=== PATIENT | female | born 1985 | race Caucasian/White ===

== ENCOUNTER → 2016-10-31 | Outpatient (CLI) | payer OTHER ==
[2016-10-31 17:00] LABS: BASO % 0.6 % (0.0-1.0); EOS # 0.2 K/mm3 (0.0-0.50); EOS % 2.3 % (0.0-3.0); LARGE UNSTAINED CELL # 0.1 K/mm3 (0.0-0.4); LARGE UNSTAINED CELL % 1.5 % (0.0-4.0); LYMPH # 1.7 K/mm3 (1.5-4.5); LYMPH % 24.4 % (24.0-44.0); MEAN CORPUSCULAR HEMOGLOBIN 33.5 pg (27.0-33.0); MEAN CORPUSCULAR HGB CONC 35.2 g/dl (32.0-36.5); MEAN CORPUSCULAR VOLUME 95.1 fl (80.0-96.0); MONO # 0.3 K/mm3 (0.0-0.8); NEUTROPHILS # 4.3 K/mm3 (1.8-7.7); NEUTROPHILS % 67.2 % (36.0-66.0); PLATELET COUNT, AUTOMATED 207 k/mm3 (150-450); RED CELL DISTRIBUTION WIDTH 12.4 % (11.5-14.5); WHITE BLOOD COUNT 6.4 K/mm3 (4.0-10.0)
[2016-11-02 09:47] LABS: HBsAg Prenatal NEGATIVE (NEGATIVE)
== END ==
LOC: M LRY 10:45
PROVIDERS: ATTEND Obstetrics & Gynecology
DX: Z34.81 Encounter for supervision of other normal pregnancy, first trimester (principal)

== ENCOUNTER → 2016-12-12 | Outpatient (REF) | payer OTHER | LOC: M LAB REF 13:05 | PROVIDERS: ATTEND Advanced Practice Midwife | DX: O34.211 Maternal care for low transverse scar from previous cesarean delivery (principal); Z3A.00 Weeks of gestation of pregnancy not specified ==

== ENCOUNTER → 2017-01-09 | Outpatient (CLI) | payer OTHER ==
[2017-01-09 16:19] LABS: ALBUMIN 2.8 GM/DL (3.2-5.2); ALBUMIN/GLOBULIN RATIO 0.72 (1.00-1.93); ALKALINE PHOSPHATASE 65 U/L (45-117); ALT/SGPT 29 U/L (12-78); ANION GAP 10 MEQ/L (8-16); AST/SGOT 14 U/L (15-37); BILIRUBIN,TOTAL 0.4 MG/DL (0.2-1.0); BLOOD UREA NITROGEN 10 MG/DL (7-18); CALCIUM LEVEL 9.1 MG/DL (8.5-10.1); CARBON DIOXIDE LEVEL 25 MEQ/L (21-32); CHLORIDE LEVEL 101 MEQ/L (98-107); CREATININE FOR GFR 0.63 MG/DL (0.55-1.02); FREE T4 0.84 NG/DL (0.76-1.46); GLOMERULAR FILTRATION RATE > 60.0 (>60); GLUCOSE, FASTING 77 MG/DL (70-105); SODIUM LEVEL 136 MEQ/L (136-145); TOTAL PROTEIN 6.7 GM/DL (6.4-8.2)
== END ==
LOC: M LRY 10:07
PROVIDERS: ATTEND Physician Assistant
DX: Z00.00 Encounter for general adult medical examination without abnormal findings (principal); K90.0 Celiac disease

== ENCOUNTER → 2017-01-17 | Outpatient (CLI) | payer OTHER ==
--- NOTE | 2017-01-17 13:21 | REP ---
OB ULTRASOUND: Real-time sonographic evaluation of the gravid uterus performed. There is a single living intrauterine gestation with estimated gestational age 18 weeks 6 days based on LMP with EDC 06/14/2017. Today's measurements indicate appropriate growth. Biometry and Growth: BPD 43 mm = 19 weeks 0 days, 54th percentile HC 163 mm = 19 weeks 0 days, 54th percentile AC 138 mm = 19 weeks 1 day, 56th percentile FL 30 mm = 19 weeks 1 day, 56th percentile HC/AC ratio 1.18 within normal range. Estimated weight 277 grams 56th percentile. SEEN/GROSSLY UNREMARKABLE Lateral ventricles Yes Posterior fossa Yes Upper lip Yes Four-chamber heart No LVOT No RVOT No Stomach Yes Cord insertion Yes Three vessel cord Yes Kidneys Yes Bladder Yes Spine Yes Cervical length: Closed and measures 3.4 cm in length. heart rate: 147 beats per minute. position: Breech. Placenta: Posterior and grade 0 with no previa or abruption. Amniotic fluid: Within normal limits. Signed by Bill San MD 01/17/2017 05:02 P
== END ==
LOC: M RAD 09:14
PROVIDERS: ATTEND Advanced Practice Midwife
DX: Z34.82 Encounter for supervision of other normal pregnancy, second trimester (principal); Z3A.18 18 weeks gestation of pregnancy

== ENCOUNTER → 2017-02-18 | Outpatient (CLI) | payer OTHER ==
--- NOTE | 2017-02-19 07:30 | REP ---
Obstetric ultrasound for follow-up of anatomy. The prior study dated 01/17/2017 did not adequately demonstrate the four-chamber view of the heart and the cardiac right and left ventricular outflow tracts. The study today is for follow-up of these structures. There is a single intrauterine gestation in a vertex presentation. There is movement and cardiac activity, the heart rate is 160 beats per minute. The placenta is posterior and fundal without previa or abruptio and is grade zero. The amniotic fluid volume subjectively is normal. The cervix measures 3.6 cm length. The maternal adnexa and cul-de-sac are unremarkable. Gestational age by the ultrasound today is 23 weeks 4 days. Gestational age by the first ultrasound is 23 weeks 3 days and by LMP 23 weeks 3 days. weight is 636 grams (1 pound, 6 ounces). This is the 50th percentile for 23 weeks 3 days. The cardiac right and left ventricular outflow tracts are adequately demonstrated and unremarkable. The four-chamber view of the heart is again suboptimal. Signed by Bill Wilson MD 02/18/2017 04:03 P
== END ==
LOC: M LRY 13:45
PROVIDERS: ATTEND Obstetrics & Gynecology
DX: Z34.82 Encounter for supervision of other normal pregnancy, second trimester (principal); Z3A.23 23 weeks gestation of pregnancy

== ENCOUNTER → 2017-03-14 | Outpatient (CLI) | payer OTHER ==
--- NOTE | 2017-03-14 12:54 | REP ---
Obstetric sonography: History: Supervision of followup anatomy. Low transverse scar from previous . Comparison study February 18, 2017. Findings: Scanning through the gravid uterus demonstrates a viable single intrauterine cephalic fetus. motion is observed and heart rate is recorded at 150 beats per minute. A posterior fundal grade 0 placenta is seen without evidence of previa or abruption. Amniotic fluid is subjectively normal. Closed cervical length is 3.7 cm. There has been appropriate interval growth. Umbilical cord is seen crossing the shoulders. No anomaly is seen. The following anatomic structures are identified and are felt to be unremarkable: cranium, choroid plexus, cavum, cerebellum and posterior fossa, face and profile, lungs, four-chamber heart, left ventricular outflow tract view, diaphragm, left-sided stomach, abdominal wall cord insertion, three-vessel umbilical cord, kidneys and bladder, spine, upper and lower extremities. Biometry chart: BPD 6.6 cm = 26 weeks 4 days Head circumference 24.8 cm = 26 weeks 6 days Abdominal circumference 22.9 cm = 27 weeks 2 days Femur length 5.1 cm = 27 weeks 2 days Humeral length 4.9 cm = 28 weeks 5 days Cerebellar diameter 3.1 cm = 26 weeks 6 days HC/AC ratio normal 1.08. Cephalic index normal 0.73. Estimated weight 1042 grams, 2 pounds 4 ounces, 50th percentile for 26 weeks 6 days. Impression: Viable single intrauterine gestation at 26 weeks 5 days by today's composite criteria. Expected gestational age estimate based on prior sonography is 26 weeks 6 days. SUZI by prior sonography June 14, 2017. In conjunction with the previous study, anatomic survey is felt to be complete. Signed by Gilberto Gooden MD 03/14/2017 05:10 P
== END ==
LOC: M LRY 08:17
PROVIDERS: ATTEND Obstetrics & Gynecology
DX: O34.211 Maternal care for low transverse scar from previous cesarean delivery (principal); Z3A.26 26 weeks gestation of pregnancy

== ENCOUNTER → 2017-03-15 | Outpatient (CLI) | payer OTHER ==
[2017-03-15 11:35] LABS: MEAN CORPUSCULAR HEMOGLOBIN 33.6 pg (27.0-33.0); MEAN CORPUSCULAR VOLUME 96.1 fl (80.0-96.0); RED CELL DISTRIBUTION WIDTH 13.3 % (11.5-14.5); WHITE BLOOD COUNT 8.2 10^3/uL (4.0-10.0)
== END ==
LOC: M LAB 09:54
PROVIDERS: ATTEND Obstetrics & Gynecology
DX: O34.211 Maternal care for low transverse scar from previous cesarean delivery (principal); Z3A.26 26 weeks gestation of pregnancy
CPT/HCPCS: 36415; 82950; 85027; 86850; 86900; 86901; J2790

== ENCOUNTER 2017-05-12 12:25 | Outpatient (CLI) | payer OTHER ==
[~2017-05-12] VITALS: Ht 160 cm; Wt 89.9 kg
[2017-05-12] MEDS ORDERED: PRENTAB9 PO (12:36)
[2017-05-12 12:50] VITALS: BP 128/72
--- NOTE | 2017-05-12 13:08 | IPNPDOC ---
Text Note Date of Service The patient was seen on 05/12/17. NOTE 32-year-old 3, para 0111, estimated date of delivery 06/14/2017. Presents at 35 weeks 2 days with complaints of lower abdominal cramping and irregular contractions. Denies loss of fluid or bleeding. Fetus is active. History is significant for a primary section in 2013, at 36 weeks for arrest of descent. She is planning a repeat section this . No apparent distress. Vital signs are stable. heart 160, moderate variability, accelerations 170s. Fetus is very active. Uterine irritability is noted. Sterile vaginal exam 1 cm, 80% effaced, -4 station. We will hydrate, ambulate and reassess. Paloma Hermosillo CNM May 12, 2017 13:08
--- NOTE | 2017-05-12 15:31 | IPNPDOC ---
Text Note Date of Service The patient was seen on 05/12/17. NOTE Pt has been ambulating Reports UC are less intense FH Cat I Uterine irritability Cervix uncharged Reviewed pt stsatus with Dr Gil. Discharge home, routine precautions. Keep next appt Paloma Hermosillo CNM May 12, 2017 15:31
== END 2017-05-12 15:49 | disposition home or self-care (01) ==
LOC: M LDO 12:25
PROVIDERS: ATTEND Advanced Practice Midwife
DX: O47.03 False labor before 37 completed weeks of gestation, third trimester (principal); Z3A.35 35 weeks gestation of pregnancy; O62.0 Primary inadequate contractions; Z91.018 Allergy to other foods

== ENCOUNTER → 2017-05-15 | Outpatient (REF) | payer OTHER ==
[~2017-05-15] MED LIST: PRENTAB9 PO
== END ==
LOC: M LAB REF 12:55
PROVIDERS: ATTEND Advanced Practice Midwife
DX: Z34.83 Encounter for supervision of other normal pregnancy, third trimester (principal); Z3A.00 Weeks of gestation of pregnancy not specified

== ENCOUNTER → 2017-05-20 | Outpatient (CLI) | payer OTHER ==
[2017-05-20 11:50] LABS: MEAN CORPUSCULAR HEMOGLOBIN 32.2 pg (27.0-33.0); MEAN CORPUSCULAR HGB CONC 34.6 g/dl (32.0-36.5); PLATELET COUNT, AUTOMATED 137 10^3/uL (150-450); RED CELL DISTRIBUTION WIDTH 13.8 % (11.5-14.5); WHITE BLOOD COUNT 7.6 10^3/uL (4.0-10.0)
== END ==
LOC: M LRY 10:13
PROVIDERS: ATTEND Advanced Practice Midwife
DX: D69.6 Thrombocytopenia, unspecified (principal)

== ENCOUNTER 2017-06-07 07:02 | Inpatient (IN) | payer OTHER ==
[2017-06-07] MEDS: LR 1,000 ML IV ×3 (07:54→20:10)
[2017-06-07 08:29] LABS: HEMATOCRIT 35.5 % (36.0-47.0); HEMOGLOBIN 12.1 g/dl (12.0-16.0); MEAN CORPUSCULAR HEMOGLOBIN 31.5 pg (27.0-33.0); MEAN CORPUSCULAR HGB CONC 34.1 g/dl (32.0-36.5); MEAN CORPUSCULAR VOLUME 92.4 fl (80.0-96.0); PLATELET COUNT, AUTOMATED 154 10^3/uL (150-450); RED BLOOD COUNT 3.84 10^6/uL (4.00-5.40); RED CELL DISTRIBUTION WIDTH 14.2 % (11.5-14.5); WHITE BLOOD COUNT 7.5 10^3/uL (4.0-10.0)
[2017-06-07] MEDS: CETIRIZINE (ZyrTEC) 10 MG TAB PO (09:00)
[2017-06-07 11:08] LABS: AMPHETAMINES URINE REFLEX NEGATIVE (NEGATIVE); BARBITURATES URINE REFLEX NEGATIVE (NEGATIVE); BENZODIAZEPINES URINE REFLEX NEGATIVE (NEGATIVE); CANNABINOIDS URINE REFLEX NEGATIVE (NEGATIVE); COCAINE METABOLITE URINE REFLE NEGATIVE (NEGATIVE); METHADONE URINE REFLEX NEGATIVE (NEGATIVE); OPIATES URINE REFLEX NEGATIVE (NEGATIVE); PHENCYCLIDINE URINE REFLEX NEGATIVE (NEGATIVE)
[2017-06-07] MEDS: BICITRA 30ML SOLN UDC PO (11:15)
[2017-06-07] MEDS ORDERED: PHENYLephrine HCL 500 MCG/5 ML (100MCG/ML) SYRINGE (J2370) As Ordered (12:13)
[2017-06-07] MEDS ORDERED: ePHEDrine SULFATE 25 MG/5 ML(5MG/ML) SYRINGE As Ordered (12:13)
[2017-06-07] MEDS ORDERED: MORPHINE PRES-FREE INJ 10 MG/10 ML VIAL (J2274) As Ordered (12:13)
[2017-06-07] MEDS ORDERED: KETOROLAC 60 MG/2 ML VIAL (J1885) As Ordered (12:13)
[2017-06-07] MEDS ORDERED: OXYTOCIN INJ 10 UNITS/ML VIAL (J2590) As Ordered (12:13)
[2017-06-07] MEDS ORDERED: dexameTHASONE 4 MG/ML 1ML VIAL (J1100) As Ordered (12:13)
[2017-06-07] MEDS ORDERED: ONDANSETRON 4MG/2ML VIAL (J2405) As Ordered (12:13)
[2017-06-07] MEDS ORDERED: PERCOCET 5MG/325MG TAB PO (12:45)
[2017-06-07] MEDS ORDERED: MEASLES,MUMPS,RUBELLA VACCINE INJ (MMR-II) (90707) SC (12:45)
[2017-06-07] MEDS ORDERED: METHYLERGONOVINE MALEATE 0.2 MG TAB PO (12:45)
[2017-06-07] MEDS ORDERED: ONDANSETRON 4MG/2ML VIAL (J2405) IV ×2 (12:45→13:30)
[2017-06-07] MEDS ORDERED: RHOGAM 300 MCG (1500 IU) INJ (J2790) IM (12:45)
[2017-06-07] MEDS ORDERED: fentaNYL 100 MCG/2 ML INJECTION (J3010) IV (13:30)
[2017-06-07] MEDS ORDERED: NALBUPHINE HCL 10 MG/ML AMP (J2300) IV (13:30)
[2017-06-07] MEDS ORDERED: MEPERIDINE INJ 25 MG/ML VIAL (J2175) IV (13:30)
[2017-06-07] MEDS ORDERED: diphenhydrAMINE INJ 50MG/ML VIAL (J1200) IV (13:30)
[2017-06-07] MEDS: KETOROLAC 30 MG/ML VIAL (J1885) IV (19:23)
[2017-06-07] MEDS: PRENATAL VITAMINS CHEWABLE TABLET PO (20:09)
[2017-06-08] MEDS: LR 1,000 ML IV ×5 (00:45→20:34)
[2017-06-08] MEDS: KETOROLAC 30 MG/ML VIAL (J1885) IV ×3 (00:46→12:58)
[2017-06-08] MEDS: BICITRA 30ML SOLN UDC PO (06:00)
[2017-06-08] MEDS: CETIRIZINE (ZyrTEC) 10 MG TAB PO (09:00)
[2017-06-08] MEDS: PRENATAL VITAMINS CHEWABLE TABLET PO (09:15)
[2017-06-08 11:33] LABS: HEMATOCRIT 28.7 % (36.0-47.0); MEAN CORPUSCULAR HEMOGLOBIN 31.8 pg (27.0-33.0); MEAN CORPUSCULAR HGB CONC 34.5 g/dl (32.0-36.5); MEAN CORPUSCULAR VOLUME 92.3 fl (80.0-96.0); PLATELET COUNT, AUTOMATED 129 10^3/uL (150-450); RED BLOOD COUNT 3.11 10^6/uL (4.00-5.40); RED CELL DISTRIBUTION WIDTH 13.8 % (11.5-14.5); WHITE BLOOD COUNT 6.5 10^3/uL (4.0-10.0)
[2017-06-08 11:39] LABS: HEMOGLOBIN 9.9 g/dl (12.0-16.0)
[2017-06-08] MEDS: PERCOCET 5MG/325MG TAB PO ×2 (17:43→22:01)
[2017-06-08] MEDS: IBUPROFEN 800 MG TAB PO (20:05)
[2017-06-09] MEDS: PERCOCET 5MG/325MG TAB PO (02:15)
[2017-06-09] MEDS: IBUPROFEN 800 MG TAB PO (04:08)
[2017-06-09] MEDS: LR 1,000 ML IV (04:43)
[2017-06-09] MEDS: BICITRA 30ML SOLN UDC PO (06:00)
[2017-06-09] MEDS: PRENATAL VITAMINS CHEWABLE TABLET PO (08:36)
[2017-06-09] MEDS: CETIRIZINE (ZyrTEC) 10 MG TAB PO (08:37)
[2017-06-09] MEDS: DOCUSATE SODIUM 100 MG CAP PO (08:37)
== END 2017-06-09 12:00 | disposition home or self-care (01) | DRG 766 ==
LOC: M LDI 07:02 → M OBS 14:05
PROVIDERS: Obstetrics & Gynecology
PROC: 10D00Z1 Extraction of Products of Conception, Low, Open Approach (ICD-10-PCS; principal; 2017-06-07 09:30)
PROC: 0UB70ZZ Excision of Bilateral Fallopian Tubes, Open Approach (ICD-10-PCS; 2017-06-07 09:30)
DX: O34.211 Maternal care for low transverse scar from previous cesarean delivery (principal); Z30.2 Encounter for sterilization; Z37.0 Single live birth; Z3A.39 39 weeks gestation of pregnancy

== ENCOUNTER → 2017-08-08 | Outpatient (REF) | payer OTHER | LOC: M LAB REF 16:55 | DX: R30.0 Dysuria (principal) | CPT/HCPCS: 87086 ==